=== PATIENT | female | born 1940 | race Caucasian/White ===

== ENCOUNTER 2024-01-30 14:42 | Inpatient (IN) | payer MEDICARE, OTHER ==
[~2024-01-30] VITALS: Ht 157.5 cm; Wt 59.0 kg
[2024-01-30] MEDS ORDERED: NORM50IV2 IV (15:51)
[2024-01-30] MEDS ORDERED: MULT-594 PO (15:51)
[2024-01-30] MEDS ORDERED: DULO30CA2 PO (15:51)
[2024-01-30] MEDS ORDERED: ENOX40DI SQ (15:51)
[2024-01-30] MEDS ORDERED: HYDR-4209 PO (15:51)
[2024-01-30] MEDS ORDERED: CYAN-51 PO (15:51)
[2024-01-30] MEDS ORDERED: ATOR10TA PO (15:51)
[2024-01-30] MEDS ORDERED: MAG355OR18 PO (15:51)
[2024-01-30] MEDS ORDERED: THIA100T88 PO (15:51)
[2024-01-30] MEDS ORDERED: ACET-2154 PO (15:51)
[2024-01-30] MEDS ORDERED: PANT40TA49 PO (15:51)
[2024-01-30] MEDS ORDERED: PETR113P TP (15:51)
[2024-01-30] MEDS ORDERED: AMOX-430 PO (15:51)
[2024-01-30] MEDS ORDERED: LEVO125T8 PO (15:51)
[2024-01-30] MEDS ORDERED: PREG50CA PO (15:51)
[2024-01-30 16:38] VITALS: BP 114/81; TEMP 97.6; O2SAT 94
[2024-01-30] MEDS ORDERED: IV NORMAL SALINE 50 ML BAG IV PRN (18:00)
[2024-01-30] MEDS ORDERED: MAG HYDROX/AL HYDROX/SIMETH 30 ML LIQUID UDC PO PRN (18:00)
[2024-01-30] MEDS ORDERED: HYDROCODONE/APAP 5-325MG TABLET PO PRN (18:00)
[2024-01-30] MEDS ORDERED: ACETAMINOPHEN 325 MG TABLET-SA PATIENTS-PAIN ONLY PO PRN (18:00)
[2024-01-30] MEDS: PREGABALIN 50 MG CAPSULE PO SCH (18:29)
[2024-01-30] MEDS: AMOXICILLIN-CLAVUL 875-125MG TABLET PO SCH (18:29)
[2024-01-30] MEDS: IV NS 1000 ML 1,000 ML IV PRN (18:59)
[2024-01-30 20:00] VITALS: BP 108/60; TEMP 98.2; O2SAT 99
[2024-01-30] MEDS: ATORVASTATIN 10 MG TABLET PO SCH (21:19)
[2024-01-30] MEDS: LORAZEPAM 1 MG TABLET PO PRN (21:19)
[2024-01-31 05:53] VITALS: BP 116/72; TEMP 98.2; O2SAT 99
[2024-01-31] MEDS: LEVOTHYROXINE SODIUM 125 MCG TABLET PO SCH (06:18)
[2024-01-31] MEDS: PANTOPRAZOLE SODIUM 40 MG TABLET.DR PO SCH (06:19)
[2024-01-31 09:00] VITALS: BP 115/50; TEMP 98.3; O2SAT 90
[2024-01-31] MEDS ORDERED: Medication Not On Formulary EA (Multivitamins (Multivitamin) 1 TAB) PO SCH (09:00)
[2024-01-31] MEDS: DULOXETINE 30 MG CAPSULE.DR PO SCH (09:06)
[2024-01-31] MEDS: CYANOCOBALAMIN 1,000 MCG TABLET PO SCH (09:07)
[2024-01-31] MEDS: MULTIVITAMINS,THERAPEUTIC TABLET PO SCH (09:07)
[2024-01-31] MEDS: THIAMINE HCL 100 MG TABLET PO SCH (09:07)
[2024-01-31] MEDS: ENOXAPARIN SODIUM 40 MG/0.4 ML DISP.SYRIN SQ SCH (09:09)
[2024-01-31 20:00] VITALS: BP 117/54; TEMP 98.2; O2SAT 90
[2024-02-01 06:30] LABS: BASOPHILS % (AUTO) 0.4 % (0.0-2.0); DIFFERENTIAL COMMENT 0; EOSINOPHILS # (AUTO) 0.3 K/uL (0.0-0.7); EOSINOPHILS % (AUTO) 6.1 % (0.0-7.0); HEMATOCRIT 37.2 % (31.2-41.9); HEMOGLOBIN 12.7 g/dL (10.9-14.3); LYMPHOCYTES # (AUTO) 1.2 K/uL (0.8-4.8); LYMPHOCYTES % (AUTO) 27.5 % (20.5-51.5); MEAN CORPUSCULAR HEMOGLOBIN 34.3 uug (24.7-32.8); MEAN CORPUSCULAR HGB CONC 34 g/dL (32.3-35.6); MEAN CORPUSCULAR VOLUME 100.8 fL (75.5-95.3); MONOCYTES # (AUTO) 0.4 K/uL (0.1-1.30); MONOCYTES % (AUTO) 9.9 % (0.0-11.0); NEUTROPHILS # (AUTO) 2.4 K/uL (1.8-8.9); NEUTROPHILS % (AUTO) 56.1 % (38.5-71.5); PLATELET COUNT (AUTO) 286 K/uL (179-408); RED BLOOD CELL COUNT(AUTO) 3.69 MIL/uL (3.63-4.92); WHITE BLOOD COUNT (AUTO) 4.2 K/uL (3.8-11.8)
[2024-02-01 06:38] VITALS: BP 140/70; TEMP 97.9; O2SAT 90
[2024-02-01 06:51] LABS: ALANINE AMINOTRANSFERASE 8 U/L (14-59); ALBUMIN 2.1 g/dL (3.4-5.0); ALKALINE PHOSPHATASE 107 U/L (50-136); ASPARTATE AMINOTRANSFERASE 11 U/L (15-37); BILIRUBIN,TOTAL 0.3 mg/dL (0.2-1.0); CALCIUM 8.4 mg/dL (8.5-10.1); CARBON DIOXIDE 29 mmol/L (21-32); CHLORIDE 112 mmol/L (98-107); CREATININE 0.9 mg/dL (0.6-1.3); GLUCOSE 94 mg/dL (74-106); MAGNESIUM 1.5 mg/dL (1.8-2.4); PHOSPHOROUS 4.5 mg/dL (2.5-4.9); POTASSIUM 4.3 mmol/L (3.5-5.1); SODIUM SERUM 147 mmol/L (136-145); TOTAL PROTEIN, SERUM 5.4 g/dL (6.4-8.2); UREA NITROGEN, BLOOD 7 mg/dL (7-18)
[2024-02-01 07:46] LABS: CHOLESTEROL 119 mg/dL (<200); HDL CHOLESTEROL 69 mg/dL (40-60); TRIGLYCERIDES 72 MG/DL (30-150)
[2024-02-01] MEDS ORDERED: MAGNESIUM OXIDE 400 MG TABLET PO ONE (12:00)
[2024-02-01] MEDS: MAGNESIUM OXIDE 400 MG TABLET PO ONE (14:53)
[2024-02-01 17:09] VITALS: BP 124/61; TEMP 97.8
[2024-02-01] MEDS: ENSURE ENLIVE (VAN) 240 ML LIQUID PO SCH (17:27)
[2024-02-01 20:00] VITALS: BP 116/60; TEMP 98.2; O2SAT 97
[2024-02-02] MEDS: LEVOTHYROXINE SODIUM 100 MCG TABLET PO SCH (06:16)
[2024-02-02 06:18] VITALS: BP 120/64; TEMP 98; O2SAT 95
[2024-02-02 16:30] VITALS: BP 106/59; TEMP 98; O2SAT 93
[2024-02-02 19:58] VITALS: BP 136/65; TEMP 98; O2SAT 92
[2024-02-03 06:03] VITALS: BP 119/64; TEMP 98; O2SAT 95
[2024-02-03] MEDS: ACETAMINOPHEN 325 MG TABLET PO PRN (08:58)
[2024-02-03 09:00] VITALS: BP 106/59; TEMP 97.7
[2024-02-03 16:45] VITALS: BP 136/68; TEMP 98.3
[2024-02-03 22:00] VITALS: BP 123/57; TEMP 98; O2SAT 94
[2024-02-04 06:54] VITALS: BP 151/91; TEMP 97.8; O2SAT 98
[2024-02-04 07:16] VITALS: BP 151/91; TEMP 97.8; O2SAT 91
[2024-02-04 16:29] VITALS: BP 122/57; TEMP 97.8; O2SAT 96
[2024-02-05 06:17] VITALS: BP 134/75; TEMP 98.7; O2SAT 90
[2024-02-05 16:15] VITALS: BP 104/56; TEMP 97.6; O2SAT 98
[2024-02-05 20:00] VITALS: BP 97/46; TEMP 98.2; O2SAT 93
[2024-02-06 06:00] VITALS: BP 127/59; TEMP 98.7; O2SAT 94
[2024-02-06 10:52] LABS: BASOPHILS % (AUTO) 0.3 % (0.0-2.0); DIFFERENTIAL COMMENT 0; EOSINOPHILS # (AUTO) 0.2 K/uL (0.0-0.7); EOSINOPHILS % (AUTO) 1.9 % (0.0-7.0); HEMATOCRIT 44.1 % (31.2-41.9); HEMOGLOBIN 14.4 g/dL (10.9-14.3); LYMPHOCYTES # (AUTO) 1.4 K/uL (0.8-4.8); LYMPHOCYTES % (AUTO) 15.3 % (20.5-51.5); MEAN CORPUSCULAR HEMOGLOBIN 33.3 uug (24.7-32.8); MEAN CORPUSCULAR HGB CONC 33 g/dL (32.3-35.6); MEAN CORPUSCULAR VOLUME 101.6 fL (75.5-95.3); MONOCYTES # (AUTO) 0.8 K/uL (0.1-1.30); NEUTROPHILS # (AUTO) 6.8 K/uL (1.8-8.9); NEUTROPHILS % (AUTO) 73.5 % (38.5-71.5); PLATELET COUNT (AUTO) 398 K/uL (179-408); RED BLOOD CELL COUNT(AUTO) 4.34 MIL/uL (3.63-4.92); WHITE BLOOD COUNT (AUTO) 9.2 K/uL (3.8-11.8)
[2024-02-06 11:06] LABS: ALANINE AMINOTRANSFERASE 25 U/L (14-59); ALBUMIN 2.9 g/dL (3.4-5.0); ALKALINE PHOSPHATASE 132 U/L (50-136); ASPARTATE AMINOTRANSFERASE 13 U/L (15-37); BILIRUBIN,TOTAL 0.4 mg/dL (0.2-1.0); CALCIUM 9.5 mg/dL (8.5-10.1); CARBON DIOXIDE 29 mmol/L (21-32); CHLORIDE 104 mmol/L (98-107); GLUCOSE 125 mg/dL (74-106); POTASSIUM 4.6 mmol/L (3.5-5.1); SODIUM SERUM 141 mmol/L (136-145); TOTAL PROTEIN, SERUM 7.7 g/dL (6.4-8.2); UREA NITROGEN, BLOOD 15 mg/dL (7-18)
[2024-02-06 11:46] LABS: HIV-1/2 ANTIBODY NON REACTIVE (NONREACTIVE)
[2024-02-06 11:47] LABS: HIV-1 p24 ANTIGEN NON REACTIVE (NONREACTIVE)
[2024-02-06 16:00] VITALS: BP 108/51; TEMP 98.3; O2SAT 96
[2024-02-06 20:00] VITALS: BP 110/61; TEMP 98.3; O2SAT 95
[2024-02-07 06:06] LABS: HEPATITIS B CORE AB, IgM Negative (Negative); HEPATITIS B CORE AB, TOTAL Negative (Negative); HEPATITIS B SURFACE AB, QUAL Non Reactive (.); HEPATITIS B SURFACE AG Negative (Negative); HEPATITIS Be ANTIGEN Negative (Negative); HEPATITIS C VIRUS ANTIBODY Non Reactive (Non Reactive)
[2024-02-07 07:05] VITALS: BP 120/59; TEMP 98; O2SAT 95
[2024-02-07 16:00] VITALS: BP 116/57; TEMP 97.8; O2SAT 98
[2024-02-07 20:15] VITALS: BP 126/55; TEMP 98.2; O2SAT 96
[2024-02-08 06:30] VITALS: BP 146/67; TEMP 98.1; O2SAT 97
== END 2024-02-08 10:31 | disposition home health service (06) | DRG 193 ==
LOC: UNDOADMIN 14:42
PROVIDERS: ADMIT Physical Medicine & Rehabilitation Pain Medicine; ATTEND Physical Medicine & Rehabilitation Pain Medicine
DX: J18.9 Pneumonia, unspecified organism (principal); E43 Unspecified severe protein-calorie malnutrition; G92.8 Other toxic encephalopathy; N39.0 Urinary tract infection, site not specified; D68.59 Other primary thrombophilia; E87.20 Acidosis, unspecified; F02.83 Dementia in other diseases classified elsewhere, unspecified severity, with mood disturbance; F02.84 Dementia in other diseases classified elsewhere, unspecified severity, with anxiety; E78.5 Hyperlipidemia, unspecified; F02.80 Dementia in other diseases classified elsewhere, unspecified severity, without behavioral disturbance, psychotic disturbance, mood disturbance, and anxiety; G30.9 Alzheimer's disease, unspecified; Z96.642 Presence of left artificial hip joint; Z87.01 Personal history of pneumonia (recurrent); E05.90 Thyrotoxicosis, unspecified without thyrotoxic crisis or storm; E86.0 Dehydration; E87.5 Hyperkalemia; F32.A Depression, unspecified; M19.90 Unspecified osteoarthritis, unspecified site; Z87.891 Personal history of nicotine dependence; R26.2 Difficulty in walking, not elsewhere classified; R53.1 Weakness
CPT/HCPCS: 36415; 83735; 84100; 84443; 85025; 86704; 86705; 86706; 86803; 87340; 87350; 87806; 97535-GO-CO; J1650; J7040